=== PATIENT | male | born 1945 | race Caucasian/White ===

== ENCOUNTER → 2016-10-10 12:47 | Emergency (ER) | payer MEDICARE, BC ==
[2016-10-10 13:34] LABS: Hematocrit 39 % (42-52); Hemoglobin 13.6 g/dl (14.0-18.0); Mean Corpuscular HGB Conc 35 g/dl (31-36); Mean Corpuscular Hemoglobin 32 pg (27-31); Mean Corpuscular Volume 92 fL (80-94); Mean Platelet Volume 8 um3 (7.4-10.4); Red Cell Distribution Width 14 % (10.5-15); White Blood Count 4.1 10^3/ul (3.5-10.8)
[2016-10-10 13:55] LABS: Albumin 3.9 g/dL (3.2-5.2); C Reactive Protein 82.94 mg/L (< 5.00); Calcium 9.4 mg/dL (8.6-10.3); EGFR African American 89.5 (>60); EGFR Non-African American 69.6 (>60); Globulin 3.4 g/dL (2-4); Total Bilirubin 0.4 mg/dL (0.2-1.0); Total Protein 7.3 g/dL (6.4-8.9)
[2016-10-10 15:51] VITALS: BP 123/70
--- NOTE | 2016-10-10 17:30 | ED ---
Ion Sprague Angela, scribed for Alvarado Leonardo MD on 10/10/16 at 1315 . Lower Extremity - HPI Summary HPI Summary: This pt is a 71 y/o male presenting to [facility] c/o an erythematous area localized on his LLE close to his knee that began 5 days ago, today it is more erythematous. Pt notes his leg is not painful but is sensitive. He reports he went to [facility] 3 days ago and was prescribed antibiotics (Duricef and Bactrim) for 10 days, today is his fourth day taking them but states no improvement. Pt notes that 5 days ago he experienced fever, chills, and had 1 episode of vomiting. Since 5 days ago on Thursday, he endorses low grade fevers. Pt notes that he had a line drawn around the area at [place] and today it seems like the area is growing beyond the line. Pt is able to ambulate and has full range of motion. He denies involvement of any other body parts, red streaks, pain in LE, dizziness, headache. - History of Current Complaint Chief Complaint: EDExtremityLower Stated Complaint: LT KNEE /POSS CELLULITIS Time Seen by Provider: 10/10/16 12:58 Hx Obtained From: Patient, Family/Piercing Specialist - Onset of Pain: Days Onset/Duration: Still Present Pain Intensity: 1 Timing: Constant Location: Is Discrete @ - left lower extremity Associated Signs And Symptoms: Positive: Redness, Fever. Negative: Weakness, Dizziness, Abdominal Pain Aggravating Factor(s): Nothing Alleviating Factor(s): Nothing - Allergies/Home Medications Allergies/Adverse Reactions: Allergies Allergy/AdvReac Type Severity Reaction Status Date / Time No Known Allergies Allergy Verified 10/10/16 12:55 PMH/Surg Hx/FS Hx/Imm Hx Endocrine/Hematology History: Denies: Hx Diabetes Respiratory History: Denies: Hx Asthma Infectious Disease History: No Infectious Disease History: Denies: Traveled Outside the [place] in Last 30 Days - Social History Alcohol Use: Weekly Substance Use Type: Reports: None Smoking Status (MU): Former Smoker Review of Systems Positive: Fever - low grade temperature, Chills Positive: Vomiting - now resolved. Negative: Abdominal Pain Positive: Other - red area on left lower extremity Negative: Headache, Weakness All Other Systems Reviewed And Are Negative: Yes Physical Exam Triage Information Reviewed: Yes Vital Signs On Initial Exam: Initial Vitals Temp Pulse Resp BP Pulse Ox 98.0 F 95 16 120/76 99 10/10/16 12:49 10/10/16 12:49 10/10/16 12:49 10/10/16 12:49 10/10/16 12:49 Vital Signs Reviewed: Yes Appearance: Positive: Well-Appearing Skin: Positive: Warm, Skin Color Reflects Adequate Perfusion, Dry, Other - LLE: There is an approximately 15 cm x 7 cm indurated erythematous warm area with vesicular/ulcer in the central portion of about 5 cm x 2 cm. Head/Face: Positive: Normal Head/Face Inspection Eyes: Positive: Normal ENT: Positive: Normal ENT inspection Neck: Positive: Supple, Nontender Cardiovascular: Positive: RRR Musculoskeletal: Positive: Normal Neurological: Positive: Normal Psychiatric: Positive: Normal, Affect/Mood Appropriate Diagnostics - Vital Signs Vital Signs Temp Pulse Resp BP Pulse Ox 10/10/16 12:49 98.0 F 95 16 120/76 99 - Laboratory Lab Results: Lab Results 10/10/16 10/10/16 Range/Units 13:24 13:24 WBC 4.1 (3.5-10.8) 10^3/ul RBC 4.20 (4.0-5.4) 10^6/ul Hgb 13.6 L (14.0-18.0) g/dl Hct 39 L (42-52) % MCV 92 (80-94) fL MCH 32 H (27-31) pg MCHC 35 (31-36) g/dl RDW 14 (10.5-15) % Plt Count 249 (150-450) 10^3/ul MPV 8 (7.4-10.4) um3 Neut % (Auto) 67.2 (38-83) % Lymph % (Auto) 19.4 L (25-47) % [place] % (Auto) 10.0 H (1-9) % Eos % (Auto) 1.6 (0-6) % Baso % (Auto) 1.8 (0-2) % Absolute Neuts (auto) 2.8 (1.5-7.7) 10^3/ul Absolute Lymphs (auto) 0.8 L (1.0-4.8) 10^3/ul Absolute Monos (auto) 0.4 (0-0.8) 10^3/ul Absolute Eos (auto) 0.1 (0-0.6) 10^3/ul Absolute Basos (auto) 0.1 (0-0.2) 10^3/ul Absolute Nucleated RBC 0 10^3/ul Nucleated RBC % 0.1 Sodium 136 (133-145) mmol/L Potassium 4.0 (3.5-5.0) mmol/L Chloride 105 (101-111) mmol/L Carbon Dioxide 24 (22-32) mmol/L Anion Gap 7 (2-11) mmol/L BUN 21 (6-24) mg/dL Creatinine 1.05 (0.67-1.17) mg/dL Est GFR ( Amer) 89.5 (>60) Est GFR (Non-Af Amer) 69.6 (>60) BUN/Creatinine Ratio 20.0 (8-20) Glucose 111 H (70-100) mg/dL Calcium 9.4 (8.6-10.3) mg/dL Total Bilirubin 0.40 (0.2-1.0) mg/dL AST 25 (13-39) U/L ALT 26 (7-52) U/L Alkaline Phosphatase 68 (34-104) U/L C-Reactive Protein 82.94 H (< 5.00) mg/L Total Protein 7.3 (6.4-8.9) g/dL Albumin 3.9 (3.2-5.2) g/dL Globulin 3.4 (2-4) g/dL Albumin/Globulin Ratio 1.1 (1-3) Result Diagrams: 10/10/16 13:24 10/10/16 13:24 Lab Statement: Any lab studies that have been ordered have been reviewed, and results considered in the medical decision making process. Lower Extremity Course/Dx - Course Course Of Treatment: Pt is a 71 y/o male who presents to the ED c/o indurated and warm erythematous area on LLE. Dr. Albarran saw the pt in the ED and felt that this was an atypical Lyme rash. He will be switched to Doxycycline. - Diagnoses Provider Diagnoses: Lyme disease - Physician Notifications Discussed Care Of Patient With: Bebeto Albarran MD Instructed by Provider To: Other - Discussed the patient's case with Dr. Albarran. He will come to the ED and see the pt. Discharge - Discharge Plan Condition: Stable Disposition: HOME Prescriptions: DOXYcycline CAP(*) [DOXYcycline 100MG CAP(*)] 100 mg PO BID #28 cap Patient Education Materials: Lyme Disease (ED) Referrals: Non Staff,Doctor [Primary Care Provider] - Additional Instructions: Please follow up with your primary care provider to assure your symptoms are improving. The documentation as recorded by the Ion peng Angela accurately reflects the service I personally performed and the decisions made by me, Alvarado Leonardo MD.
--- NOTE | 2016-10-10 21:47 | CONS ---
CONSULTATION REPORT: DATE OF CONSULTATION: 10/10/16 REQUESTING PHYSICIAN: Dr. Leonardo. CONSULTING SERVICE: Infectious Disease. REASON FOR CONSULTATION: Left leg rash and fever. IMPRESSION: Erythema migrans, rash of the left lower extremity with a necrotic center, which has be en common this summer. He had constitutional symptoms, which are largely resolved. RECOMMENDATIONS: Doxycycline 100 mg by mouth twice daily for 10 days. We discussed that there is n o role for Lyme serology testing at this point, which is uniformly negative. Keep the area clean wi th soap and water, the central area will likely slough off eventually and so he could use an antibio tic ointment on that area and follow up with his primary doctor, who is out of the area when he retu rns home. HISTORY OF PRESENT ILLNESS: This is a 71-year-old man seen in the ER with left leg pain and redness . He lives in the [facility] and on Thursday developed fever and nausea and vomited once. He has tobin d occasional fevers ever since then, but his energy has been okay. No chills or shaking chills. He has been eating alright, they are here on a wine tour, he has been tolerating that activity well. He developed an itchy area in the left lower leg on Thursday, then some redness developed there, then swelling and then the redness spread and the central area became purplish and like there were some bubbles of skin forming. They were seen in the ER in [place] and given Keflex and Bactrim, ever ything has gotten worse continually in the last 2 or 3 days, so he has called his primary who recomm ended that he be seen in the ER wherever he was. He had a CBC that showed a white count 4000, plate lets 240,000, CRP of 83. He is afebrile, normotensive. He has not had anything like this in the [facility]. He spends a fair amount of time outdoors in the [place] area. PAST MEDICAL HISTORY: None. MEDICATIONS: 1. Keflex. 2. Bactrim. ALLERGIES: None. FAMILY HISTORY: Noncontributory. SOCIAL HISTORY: He is retired, lives in [place] with his . REVIEW OF SYSTEMS: All negative except as noted above in the HPI. PHYSICAL EXAMINATION: Vital Signs: Temperature is 36.7, heart rate 80, respiratory rate 16, blood pressure 117/67, O2 sat 93% on room air. In general, he is awake, not in distress. HEENT: There i s no conjunctival hemorrhage. Oropharynx is without lesions. Neck: Supple. Lymph Nodes: There is no inguinal, axillary or epitrochlear lymphadenopathy. Heart is regular rate and rhythm without mu rmurs, rubs, or gallops. Lungs are clear to auscultation bilaterally. Abdomen is soft, nontender, nondistended. There is bowel sounds present. Skin: There is an area of about 6 cm round dark eryt jayde in the right lower leg partially behind the knee. There is a faint band of erythema around the darker area and centrally there is 2 cm of superficial necrosis and a slight amount of skin sloughi ng. There is no crepitus or fluctuance. LABORATORY DATA: Creatinine 1, CRP 82, white blood cell count 4, hemoglobin 13.6, platelets 249,000 . Please see impressions and recommendations outlined above, which I have discussed with Dr. Leonardo. Thank you for asking me to see Mr. Crandall in consultation. [id number]/[facility] #: [id number]
== END | disposition home or self-care (01) ==
LOC: ED 12:47
DX: A69.20 Lyme disease, unspecified (principal); R50.9 Fever, unspecified; R11.10 Vomiting, unspecified
CPT/HCPCS: 36415; 80053; 85025; 86140; 99282